=== PATIENT | male | born 1985 | race Caucasian/White ===

== ENCOUNTER 2019-10-02 11:20 | Inpatient (IN) ==
[2019-10-02 12:45] LABS: Acetaminophen < 10 mcg/mL (10-20); Chol/HDL Ratio 2.1 (0-4.9); Cholesterol 141 mg/dL (< 200); HDL Cholesterol 68 mg/dL (40-59); LDL Cholesterol,Calculated 64 mg/dL (0-99); Salicylate < 2.5 mg/dL (15.0-30.0); Triglycerides 43 mg/dL (< 150)
[2019-10-02 13:13] LABS: Estimated Average Glucose 114 mg/dl
[2019-10-02] MEDS ORDERED: Haloperidol Lactate 5 MG/ML VIAL IM PRN (15:09)
[2019-10-02] MEDS ORDERED: MOM Conc 10 ML UD.LIQ PO PRN (15:09)
[2019-10-02] MEDS ORDERED: *HR* LORazepam 2 MG/ML VIAL IM PRN (15:09)
[2019-10-02] MEDS ORDERED: Mag Hydrox/Al Hydrox/Simeth 30 ML UDC PO PRN (15:09)
[2019-10-02] MEDS ORDERED: *HR* LORazepam 1 MG TABLET PO PRN (15:09)
[2019-10-03] MEDS: risperiDONE 1 MG TABLET PO SCH (21:10)
[2019-10-03] MEDS: Lithium Carbonate 300 MG CAPSULE PO SCH (21:10)
[2019-10-04] MEDS: Lithium Carbonate 300 MG CAPSULE PO SCH ×3 (02:13→21:28)
[2019-10-04] MEDS: risperiDONE 1 MG TABLET PO SCH ×3 (02:14→21:28)
[2019-10-05] MEDS: Lithium Carbonate 300 MG CAPSULE PO SCH ×3 (09:31→20:15)
[2019-10-05] MEDS: risperiDONE 1 MG TABLET PO SCH ×2 (09:31→20:15)
[2019-10-05 12:50] LABS: Basophils % 0.4 %; Eosinophils % 0.3 %; Hematocrit 44.6 % (37.5-50.1); Immature Granulocytes % 0.3 % (0-4); Lymphocytes # 3.9 K/mcL (0.6-4.6); Lymphocytes % 37.7 %; Mean Corpuscular HGB Conc 33.6 g/dL (31.6-35.5); Mean Corpuscular Volume 92.1 fL (83.0-100.0); Mean Platelet Volume 10.3 fL (9.4-12.4); Monocytes # 0.8 K/mcL (0.0-1.3); Neutrophils # 5.4 K/mcL (1.6-8.9); Platelet Count 248 K/mcL (140-400); Red Blood Count 4.84 M/mcL (4.19-5.50); Red Cell Distribution Width 12.2 % (11.5-14.5); Segmented Neutrophils % 53.3 %; White Blood Count 10.2 K/mcL (4.3-11.1)
[2019-10-05 13:24] LABS: Alanine Aminotransferase 26 Units/L (7-52); Albumin/Globulin Ratio 1.9 (1.1-2.2); Alkaline Phosphatase 47 Units/L (34-104); Aspartate Amino Transferase 42 Units/L (13-39); BUN/Creatinine Ratio 14 (6-26); Bilirubin,Total 0.9 mg/dL (0.3-1.0); Blood Urea Nitrogen 17 mg/dL (6-20); Carbon Dioxide 22 mEq/L (23-29); Chloride 102 mEq/L (98-107); Globulin 2.7 g/dL (2.4-3.5); Glucose 87 mg/dL (70-105); Osmolality,Calculated 291 (280-300); Potassium 3.4 mEq/L (3.5-5.1); Sodium 140 mEq/L (136-145); Total Protein 7.7 g/dL (6.4-8.9); eGFR For African Americans > 60 (> 60); eGFR For Non-African Americans > 60 (> 60)
[2019-10-05 13:41] LABS: Hepatitis B Surface Antibody < 3.10 mIU/mL
[2019-10-05 13:52] LABS: Hepatitis B Surface Antigen Nonreactive (Nonreactive)
[2019-10-05 14:22] LABS: Hepatitis B Core IgM Nonreactive (Nonreactive)
[2019-10-05 14:35] LABS: HIV-1&2 Antibody & p24 Ag Nonreactive (Nonreactive)
[2019-10-05] MEDS: traZODone 50 MG TABLET PO PRN (21:35)
[2019-10-06] MEDS: hydrOXYzine pamoate 25 MG CAPSULE PO PRN ×2 (02:22→19:59)
[2019-10-06] MEDS: traZODone 50 MG TABLET PO PRN ×3 (02:25→23:27)
[2019-10-06 08:41] LABS: Basophils % 0.3 %; Eosinophils # 0.1 K/mcL (0.0-0.6); Eosinophils % 0.7 %; Hematocrit 43.7 % (37.5-50.1); Immature Granulocytes % 0.3 % (0-4); Lymphocytes # 3.6 K/mcL (0.6-4.6); Mean Corpuscular HGB Conc 34.3 g/dL (31.6-35.5); Mean Corpuscular Hemoglobin 30.9 pg (28.0-33.3); Mean Corpuscular Volume 89.9 fL (83.0-100.0); Mean Platelet Volume 9.6 fL (9.4-12.4); Monocytes # 0.6 K/mcL (0.0-1.3); Monocytes % 6.1 %; Neutrophils # 6.1 K/mcL (1.6-8.9); Platelet Count 239 K/mcL (140-400); Red Blood Count 4.86 M/mcL (4.19-5.50); Red Cell Distribution Width 12.1 % (11.5-14.5); Segmented Neutrophils % 58.6 %; White Blood Count 10.5 K/mcL (4.3-11.1)
[2019-10-06 09:02] LABS: BUN/Creatinine Ratio 13 (6-26); Blood Urea Nitrogen 14 mg/dL (6-20); Calcium 9.7 mg/dL (8.6-10.3); Carbon Dioxide 28 mEq/L (23-29); Chloride 102 mEq/L (98-107); Glucose 117 mg/dL (70-105); Osmolality,Calculated 292 (280-300); Potassium 3.6 mEq/L (3.5-5.1); Sodium 140 mEq/L (136-145); eGFR For African Americans > 60 (> 60); eGFR For Non-African Americans > 60 (> 60)
[2019-10-06] MEDS: Lithium Carbonate 300 MG CAPSULE PO SCH ×2 (09:50→19:58)
[2019-10-06] MEDS: risperiDONE 1 MG TABLET PO SCH ×2 (09:50→19:58)
[2019-10-06] MEDS: Ibuprofen 400 MG TABLET PO PRN (19:59)
[2019-10-07] MEDS: Saline Nasal Spray 44 ML BOTTLE NS PRN ×5 (01:39→22:18)
[2019-10-07] MEDS: risperiDONE 1 MG TABLET PO SCH ×2 (08:17→21:02)
[2019-10-07] MEDS: Lithium Carbonate 300 MG CAPSULE PO SCH ×2 (08:18→21:02)
[2019-10-07] MEDS: hydrOXYzine pamoate 25 MG CAPSULE PO PRN (21:02)
[2019-10-07] MEDS: traZODone 50 MG TABLET PO PRN (21:02)
[2019-10-08] MEDS: traZODone 50 MG TABLET PO PRN (01:54)
[2019-10-08] MEDS: hydrOXYzine pamoate 25 MG CAPSULE PO PRN (01:54)
[2019-10-08] MEDS: Saline Nasal Spray 44 ML BOTTLE NS PRN (01:55)
[2019-10-08] MEDS: Ibuprofen 400 MG TABLET PO PRN (02:20)
[2019-10-08 07:59] VITALS: BP 136/77
[2019-10-08] MEDS: Lithium Carbonate 300 MG CAPSULE PO SCH (08:31)
[2019-10-08] MEDS: risperiDONE 1 MG TABLET PO SCH (08:32)
[2019-10-08] MEDS ORDERED: Fluticasone Propionate Nasal 50 MCG/SPRAY BOTTLE NS SCH (09:30)
[2019-10-08 10:27] LABS: Arsenic <10.0 ug/L (0.0-12.0); Cadmium <1.0 ug/L (0.0-5.0); Mercury <2.5 ug/L (0.0-10.0)
== END 2019-10-08 14:00 | disposition home or self-care (01) | DRG 885 ==
LOC: EMEROOARM 11:20 → SUATTDRO 15:06 → 1ANU 15:06
PROVIDERS: ADMIT Psychiatry & Neurology Psychiatry; ATTEND Psychiatry & Neurology Psychiatry

== ENCOUNTER 2020-04-08 03:35 | Inpatient (IN) ==
[2020-04-08] MEDS ORDERED: Haloperidol Lactate 5 MG/ML VIAL IM PRN (09:14)
[2020-04-08] MEDS ORDERED: *HR* LORazepam 2 MG/ML VIAL IM PRN (09:14)
[2020-04-08] MEDS ORDERED: haloperidoL 5 MG TABLET PO PRN (09:14)
[2020-04-08] MEDS ORDERED: *HR* LORazepam 1 MG TABLET PO PRN (09:14)
[2020-04-08] MEDS ORDERED: hydrOXYzine pamoate 25 MG CAPSULE PO PRN (09:14)
[2020-04-08] MEDS ORDERED: Acetaminophen 325 MG TABLET PO PRN (09:14)
[2020-04-08] MEDS ORDERED: Mag Hydrox/Al Hydrox/Simeth 30 ML UDC PO PRN (09:14)
[2020-04-08] MEDS ORDERED: QUEtiapine Fumarate 25 MG TABLET PO PRN (09:14)
[2020-04-08] MEDS ORDERED: Lithium Oral Soln 300 MG/5 ML (8 mEq/5mL) UDC PO SCH (09:15)
[2020-04-08] MEDS ORDERED: risperiDONE 1 MG TABLET PO ONE (09:16)
[2020-04-08] MEDS ORDERED: *HR* LORazepam 1 MG TABLET PO ONE (09:16)
[2020-04-08] MEDS ORDERED: QUEtiapine Fumarate 100 MG TABLET PO PRN (15:59)
[2020-04-08] MEDS: *HR* LORazepam 1 MG TABLET PO SCH (21:40)
[2020-04-08] MEDS: Lithium Carbonate ER 450 MG TABLET.ER PO SCH (21:40)
[2020-04-08] MEDS: risperiDONE 1 MG TABLET PO SCH (21:41)
[2020-04-09] MEDS: Lithium Carbonate ER 450 MG TABLET.ER PO SCH ×2 (10:29→21:27)
[2020-04-09] MEDS: risperiDONE 1 MG TABLET PO SCH ×2 (10:30→21:29)
[2020-04-09] MEDS: *HR* LORazepam 1 MG TABLET PO SCH ×3 (10:30→21:27)
[2020-04-09] MEDS: MOM Conc 10 ML UD.LIQ PO PRN (19:12)
[2020-04-09] MEDS: QUEtiapine Fumarate 300 MG TABLET PO PRN (23:05)
[2020-04-10] MEDS: Lithium Carbonate ER 450 MG TABLET.ER PO SCH ×2 (09:08→21:46)
[2020-04-10] MEDS: MOM Conc 10 ML UD.LIQ PO PRN (11:46)
[2020-04-10] MEDS: risperiDONE 1 MG TABLET PO SCH (14:15)
[2020-04-10] MEDS: *HR* LORazepam 1 MG TABLET PO SCH ×2 (14:15→21:46)
[2020-04-10] MEDS: QUEtiapine Fumarate 300 MG TABLET PO PRN (21:46)
[2020-04-10] MEDS: QUEtiapine Fumarate 100 MG TABLET PO PRN (21:46)
[2020-04-11] MEDS: risperiDONE 1 MG TABLET PO SCH ×2 (00:03→09:15)
[2020-04-11] MEDS: QUEtiapine Fumarate 100 MG TABLET PO PRN (03:57)
[2020-04-11] MEDS: Lithium Carbonate ER 450 MG TABLET.ER PO SCH (08:39)
[2020-04-11 08:47] LABS: Chol/HDL Ratio 1.8 (0-4.9)
[2020-04-11 08:53] LABS: Estimated Average Glucose 103 mg/dl; Hemoglobin A1C 5.2 %
[2020-04-11] MEDS: *HR* LORazepam 1 MG TABLET PO SCH ×3 (09:15→21:30)
[2020-04-11] MEDS: MOM Conc 10 ML UD.LIQ PO PRN (14:53)
[2020-04-11] MEDS ORDERED: haloperidoL 5 MG TABLET PO SCH (21:00)
[2020-04-11] MEDS ORDERED: Lithium Carbonate ER 450 MG TABLET.ER PO SCH (21:00)
[2020-04-12] MEDS: QUEtiapine Fumarate 100 MG TABLET PO PRN (01:10)
[2020-04-12] MEDS: QUEtiapine Fumarate 300 MG TABLET PO PRN (01:10)
[2020-04-12] MEDS ORDERED: Lithium Carbonate ER 450 MG TABLET.ER PO SCH (09:00)
[2020-04-12 09:07] VITALS: BP 143/96
[2020-04-12] MEDS: *HR* LORazepam 1 MG TABLET PO SCH (09:09)
[2020-04-12] MEDS ORDERED: haloperidoL 5 MG TABLET PO PRN (11:20)
[2020-04-12] MEDS ORDERED: *HR* LORazepam 1 MG TABLET PO PRN (11:35)
[2020-04-12] MEDS ORDERED: QUEtiapine Fumarate 100 MG TABLET PO SCH (21:00)
== END 2020-04-12 12:40 | disposition home or self-care (01) | DRG 885 ==
LOC: EMEROOARM 03:35 → 1ANU 09:09
PROVIDERS: ADMIT Psychiatry & Neurology Psychiatry; ATTEND Psychiatry & Neurology Psychiatry

== ENCOUNTER 2021-03-07 17:22 | Inpatient (IN) ==
[2021-03-07 18:14] LABS: Basophils % 0.3 %; Eosinophils % 0.1 %; Hemoglobin 14.4 g/dL (12.9-16.9); Immature Granulocytes % 0.2 % (0-4); Lymphocytes # 3.2 K/mcL (0.6-4.6); Lymphocytes % 27.6 %; Mean Corpuscular HGB Conc 33.5 g/dL (31.6-35.5); Mean Corpuscular Hemoglobin 31.4 pg (28.0-33.3); Mean Corpuscular Volume 93.9 fL (83.0-100.0); Mean Platelet Volume 9.3 fL (9.4-12.4); Monocytes # 0.7 K/mcL (0.0-1.3); Monocytes % 5.9 %; Neutrophils # 7.7 K/mcL (1.6-8.9); Platelet Count 295 K/mcL (140-400); Red Blood Count 4.58 M/mcL (4.19-5.50); Red Cell Distribution Width 11.8 % (11.5-14.5); Segmented Neutrophils % 65.9 %; White Blood Count 11.7 K/mcL (4.3-11.1)
[2021-03-07 18:31] LABS: Acetaminophen < 10 mcg/mL (10-20); BUN/Creatinine Ratio 13 (6-26); Blood Urea Nitrogen 13 mg/dL (6-20); Carbon Dioxide 27 mEq/L (23-29); Chloride 99 mEq/L (98-107); Chol/HDL Ratio 1.9 (0-4.9); Cholesterol 128 mg/dL (< 200); Ethanol < 10 mg/dL (Less than 10); Glucose 131 mg/dL (70-105); HDL Cholesterol 69 mg/dL (40-59); LDL Cholesterol,Calculated 44 mg/dL (< 100); Osmolality,Calculated 296 (280-300); Potassium 3.4 mEq/L (3.5-5.1); Salicylate < 2.5 mg/dL (15.0-30.0); Sodium 142 mEq/L (136-145); Triglycerides 75 mg/dL (< 150); eGFR For African Americans > 60 (> 60); eGFR For Non-African Americans > 60 (> 60)
[2021-03-07 18:33] LABS: Estimated Average Glucose 103 mg/dl; Hemoglobin A1C 5.2 %
[2021-03-07 18:40] LABS: Bilirubin,Urine Negative (Negative); Blood,Urine Negative (Negative); Clarity,Urine Clear (Clear); Color,Urine Light-Yellow (Yellow); Glucose,Urine (UA) Normal (Normal); Ketones,Urine 10 mg/dL (Negative); Leukocyte Esterase,Urine Negative (Negative); Nitrite,Urine Negative (Negative); Protein,Urine Trace mg/dL (Neg-Trace); Specific Gravity,Urine 1.018 (1.010-1.025); Urobilinogen,Urine Normal (Normal)
[2021-03-07 18:53] LABS: Amphetamine Screen,Urine Negative ng/mL (Cutoff=1000); Barbiturate Screen,Urine Negative ng/mL (Cutoff=200); Benzodiazepines Screen,Urine Negative ng/mL (Cutoff=200); Cannabinoid Screen,Urine Positive ng/mL (Cutoff = 50); Cocaine Screen,Urine Negative ng/mL (Cutoff= 300); Opiate Screen,Urine Negative ng/mL (Cutoff=300); Phencyclidine Screen,Urine Negative ng/mL (Cutoff=25)
[2021-03-08 00:12] LABS: Influenza A PCR Negative (Negative); Influenza B PCR Negative (Negative); Resp. Syncytial Virus PCR Negative (Negative)
[2021-03-08 00:15] LABS: SARS-CoV-2 by PCR (In House) Negative (Negative)
[2021-03-08] MEDS ORDERED: *HR* LORazepam 2 MG/ML VIAL IM PRN (15:03)
[2021-03-08] MEDS ORDERED: *HR* LORazepam 1 MG TABLET PO PRN (15:03)
[2021-03-08] MEDS ORDERED: Haloperidol Lactate 5 MG/ML VIAL IM PRN (15:03)
[2021-03-08] MEDS ORDERED: haloperidoL 5 MG TABLET PO PRN (15:03)
[2021-03-08] MEDS ORDERED: QUEtiapine Fumarate 25 MG TABLET PO PRN (15:03)
[2021-03-09] MEDS: clonazePAM 1 MG TABLET PO PRN (23:00)
[2021-03-09] MEDS: Ibuprofen 400 MG TABLET PO PRN (23:00)
[2021-03-10] MEDS: Ibuprofen 400 MG TABLET PO PRN (09:02)
[2021-03-10] MEDS ORDERED: MOM Conc 10 ML UD.LIQ PO PRN (09:46)
[2021-03-10] MEDS ORDERED: Mag Hydrox/Al Hydrox/Simeth 30 ML UDC PO PRN (09:46)
[2021-03-10] MEDS: Lithium Carbonate 300 MG CAPSULE PO SCH (20:43)
[2021-03-10] MEDS: clonazePAM 1 MG TABLET PO PRN (22:02)
[2021-03-10] MEDS: hydrOXYzine pamoate 25 MG CAPSULE PO PRN (22:02)
[2021-03-11] MEDS: Lithium Carbonate 300 MG CAPSULE PO SCH ×2 (08:43→20:32)
[2021-03-11] MEDS: hydrOXYzine pamoate 25 MG CAPSULE PO PRN (22:04)
[2021-03-11] MEDS: clonazePAM 1 MG TABLET PO PRN (22:04)
[2021-03-12] MEDS: Lithium Carbonate 300 MG CAPSULE PO SCH (08:39)
[2021-03-12] MEDS ORDERED: Lithium Carbonate 300 MG CAPSULE PO SCH ×3 (09:00→21:00)
[2021-03-12] MEDS: clonazePAM 1 MG TABLET PO SCH (20:25)
[2021-03-13] MEDS: hydrOXYzine pamoate 25 MG CAPSULE PO PRN (02:33)
[2021-03-13] MEDS ORDERED: Lithium Carbonate 300 MG CAPSULE PO SCH ×3 (09:00→21:00)
[2021-03-13] MEDS: clonazePAM 1 MG TABLET PO SCH (20:57)
[2021-03-14] MEDS: hydrOXYzine pamoate 25 MG CAPSULE PO PRN (03:59)
[2021-03-14] MEDS ORDERED: Lithium Carbonate 300 MG CAPSULE PO SCH (09:00)
[2021-03-14 09:26] VITALS: BP 155/89
== END 2021-03-14 17:24 | disposition home or self-care (01) | DRG 885 ==
LOC: EMEROOARM 17:22 → 1ANU 03-08 14:25
PROVIDERS: ADMIT Psychiatry & Neurology Psychiatry; ATTEND Psychiatry & Neurology Psychiatry